=== PATIENT | male | born 1995 | race Caucasian/White ===

== ENCOUNTER 2024-06-20 01:10 | Observation (INO) ==
[2024-06-20] MEDS: LACTATED RINGERS SEPSIS IV ONE (02:31)
[2024-06-20] MEDS: Cefepime 2 GM in Dextrose 2 GM/50 ML BAG IV ONE (02:52)
[2024-06-20 03:02] LABS: ABS Lymphocytes 0.9 10^3/uL (1.0-4.8); ABS Monocytes 0.9 10^3/uL (0.0-1.1); ABS Neutrophils 7.4 10^3/uL (1.5-7.6); ABS Nucleated RBC 0.01 10^3/ul; Hematocrit 46.1 % (38-53); Hemoglobin 15.5 g/dL (13.2-16.3); Lymphocyte % 9.5 %; Mean Corpuscular Hemoglobin 30.2 pg (27-33); Mean Corpuscular Hgb Conc 33.6 g/dL (31-36); Mean Corpuscular Volume 89.8 fL (80-97); Mean Platelet Volume 8.5 fL (7.5-11.2); Nucleated Red Blood Cells % 0.1 %/100WBC (0.0-0.8); Platelet Count 189 10^3/uL (150-450); Red Blood Count 5.13 10^6/uL (4.06-5.63); Red Cell Distribution Width 13.7 % (12-17); White Blood Count 9.2 10^3/uL (3.6-10.2)
[2024-06-20 03:20] LABS: Rapid Strep Molecular Negative (Negative)
[2024-06-20 03:24] LABS: Activated Partial Thrombo Time 34.2 seconds (26.0-38.0); INR 1.22 (0.85-1.14)
[2024-06-20 03:33] LABS: Albumin 4.6 g/dL (3.2-5.2); Albumin/Globulin Ratio 1.8 (1-3); C Reactive Protein 132.11 mg/L (<8.01); Calcium 9.9 mg/dL (8.6-10.3); Creatinine, Serum 1.03 mg/dL (0.67-1.17); Globulin 2.6 g/dL (2-4); Potassium 3.7 mmol/L (3.5-5.0); Total Bilirubin 1.2 mg/dL (0.2-1.0); Total Protein 7.2 g/dL (6.4-8.9); eGFR CKD-EPI 100.8 (>60)
[2024-06-20 03:42] LABS: Urine Appearance Clear; Urine Bilirubin Negative (Negative); Urine Blood Negative (Negative); Urine Color Yellow; Urine Glucose Negative (Negative); Urine Ketones 1+ (Negative); Urine Nitrite Negative (Negative); Urine Protein Trace (Negative); Urine Specific Gravity 1.023 (1.002-1.030); Urine Urobilinogen Negative (Negative); Urine pH 5.5 (5.0-8.0)
[2024-06-20] MEDS: Iohexol 350 (CONTRAST) 500 ML MDV IV ONE (04:04)
[2024-06-20] MEDS: Prochlorperazine 5 mg/ml 2 ml VIAL (10 mg) IV ONE (04:54)
[2024-06-20] MEDS ORDERED: Dexamethasone IV 4 MG/ML 5 ML VIAL (20 MG) IVPB ONE (05:00)
[2024-06-20] MEDS: Dexamethasone IV 4 MG/ML VIAL 1 ml VIAL IV SLOW PU ONE (05:01)
[2024-06-20] MEDS: NS 0.9% 1000 ml BAG 1,000 ML IV ONE (05:12)
[2024-06-20 05:14] LABS: High Sensitivity Troponin 1 Hr 3 pg/mL (<20)
[2024-06-20] MEDS: Vancomycin 1,500 MG in NS 0.9% 250 ml 250 ML IVPB ONE ×2 (05:22→09:29)
[2024-06-20] MEDS ORDERED: Lorazepam PYXIS KEY PRN (05:43)
[2024-06-20] MEDS: LORazepam 2 mg VIAL 1 ml IV PUSH ONE (06:08)
[2024-06-20] MEDS: metroNIDAZOLE IV 500 MG/100ML 500 MG/100 ML BAG IVPB ONE (09:29)
[2024-06-20] MEDS ORDERED: Calcium Carb (TUMS) 500 mg CHEW TAB PO PRN (13:10)
[2024-06-20] MEDS: Vancomycin 1000 MG in NS 0.9% 250 ML IVPB SCH ×2 (13:59→22:21)
[2024-06-20] MEDS ORDERED: Zosyn per Pharmacy NOTE FOLLOW UP SCH (14:00)
[2024-06-20] MEDS ORDERED: Vancomycin per Pharmacy 1 EA NOTE FOLLOW UP SCH (14:00)
[2024-06-20] MEDS ORDERED: Cefepime 2 GM in Dextrose 2 GM/50 ML BAG IV SCH (15:00)
[2024-06-20] MEDS: ZOSYN 3.375 GM x ONE DOSE over 30 miuntes IV (16:00)
[2024-06-20] MEDS ORDERED: metroNIDAZOLE IV 250 MG/50ML 50 ML IVPB SCH (17:00)
[2024-06-20] MEDS: ZOSYN 3.375 GM Q8H per EXTENDED INFUSION IV SCH ×2 (20:54→21:02)
[2024-06-21 06:20] LABS: ABS Lymphocytes 1.4 10^3/uL (1.0-4.8); ABS Neutrophils 6.4 10^3/uL (1.5-7.6); ABS Nucleated RBC 0.01 10^3/ul; Eosinophil % 0.4 %; Hematocrit 40.9 % (38-53); Lymphocyte % 15.8 %; Mean Corpuscular Hemoglobin 30.5 pg (27-33); Mean Corpuscular Hgb Conc 34.2 g/dL (31-36); Mean Corpuscular Volume 89.1 fL (80-97); Mean Platelet Volume 8.7 fL (7.5-11.2); Nucleated Red Blood Cells % 0.1 %/100WBC (0.0-0.8); Platelet Count 169 10^3/uL (150-450); Red Blood Count 4.59 10^6/uL (4.06-5.63); Red Cell Distribution Width 13.6 % (12-17); White Blood Count 8.8 10^3/uL (3.6-10.2)
[2024-06-21 06:46] LABS: Albumin 3.8 g/dL (3.2-5.2); Albumin/Globulin Ratio 1.7 (1-3); C Reactive Protein 90.55 mg/L (<8.01); Calcium 8.8 mg/dL (8.6-10.3); Creatinine, Serum 0.89 mg/dL (0.67-1.17); Globulin 2.2 g/dL (2-4); Magnesium 1.8 mg/dL (1.9-2.7); Potassium 3.6 mmol/L (3.5-5.0); Total Bilirubin 0.6 mg/dL (0.2-1.0)
[2024-06-21] MEDS: Vancomycin Trough Check NOTE FOLLOW UP ONE (07:43)
[2024-06-21 14:50] LABS: EBV Capsid Ag IgG Ab Positive (Negative); EBV Capsid Ag IgM Ab Negative (Negative); Epstein-Barr Nuclear Antigen Positive (Negative)
[2024-06-21] MEDS: Vancomycin 1,250 MG in NS 0.9% 250 ml 250 ML IVPB SCH (14:50)
[2024-06-21] MEDS: ceFAZolin 2 GM PREMIX 2 GM/50 ML BAG IV SCH (15:44)
[2024-06-22 07:25] LABS: ABS Eosinophils 0.1 10^3/uL (0.0-0.5); ABS Lymphocytes 1.8 10^3/uL (1.0-4.8); ABS Monocytes 0.5 10^3/uL (0.0-1.1); ABS Neutrophils 3.5 10^3/uL (1.5-7.6); ABS Nucleated RBC 0.01 10^3/ul; Eosinophil % 1.4 %; Hematocrit 41.5 % (38-53); Hemoglobin 14.1 g/dL (13.2-16.3); Lymphocyte % 30.7 %; Mean Corpuscular Hemoglobin 30.4 pg (27-33); Mean Corpuscular Volume 89.4 fL (80-97); Mean Platelet Volume 8.4 fL (7.5-11.2); Nucleated Red Blood Cells % 0.2 %/100WBC (0.0-0.8); Platelet Count 189 10^3/uL (150-450); Red Blood Count 4.64 10^6/uL (4.06-5.63); Red Cell Distribution Width 14.2 % (12-17)
[2024-06-22 07:46] LABS: Albumin 3.8 g/dL (3.2-5.2); Albumin/Globulin Ratio 1.7 (1-3); Creatinine, Serum 0.93 mg/dL (0.67-1.17); Globulin 2.3 g/dL (2-4); Potassium 3.9 mmol/L (3.5-5.0); Total Bilirubin 0.3 mg/dL (0.2-1.0); Total Protein 6.1 g/dL (6.4-8.9)
[2024-06-22 10:10] VITALS: BP 136/89
[2024-06-22] MEDS ORDERED: Vancomycin Trough Check NOTE FOLLOW UP ONE (13:30)
[2024-06-22 19:05] LABS: Anaplasma phagocytophilum Negative (Negative); B. miyamotoi PCR, B Negative (Negative); Babesia divergens/MO-1 Negative (Negative); Babesia ducani Negative (Negative); Ehrlichia chaffeensis Negative (Negative); Ehrlichia ewingii/canis Negative (Negative); Ehrlichia muris eauclairensis Negative (Negative)
== END 2024-06-22 13:38 | disposition home or self-care (01) ==
LOC: ED 01:10 → EDHOLD 01:10 → MEDTELE 16:32
PROVIDERS: ADMIT Student in an Organized Health Care Education/Training Program; ATTEND Internal Medicine